=== PATIENT | male | born 1995 | race Caucasian/White ===

== ENCOUNTER 2018-09-24 19:46 | Emergency (ER) | payer BC ==
[2018-09-24] MEDS ORDERED: NS 0.9% 1000 ML** 1,000 ML IV ONE (20:04)
--- NOTE | 2018-09-24 20:12 | ED ---
Complex/Multi-Sys Presentation - HPI Summary HPI Summary: Patient is a 23 y/o M presenting to ED via EMS with complaints of feeling hot, dizzy, near syncopal and having a CHICAS while playing football outside earlier today. Patient estimates that he was outside for a few hours. Sx onset in the middle of the game. He states that he feels "a lot better" at present. Abdominal cramping is denied. On triage, pain is denied, nothing is noted to aggravate/alleviate Sx. Home medications and allergies are reviewed. - History Of Current Complaint Hx Obtained From: Patient Onset/Duration: Resolved Timing: Intermittent, Lasting: Severity Currently: None Location: Pain At: - head Character: Typical Headache Associated Signs And Symptoms: Positive: Dizziness, Headache, Other - felt hot, near syncopal. 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 Verified 09/24/18 19:50 Shock Home Medications: Home Medications NK [No Home Medications Reported] 09/24/18 [History Confirmed 09/24/18] PMH/Surg Hx/FS Hx/Imm Hx Sensory History: Denies: Hx Legally Blind, Hx Deafness Opthamlomology History: Denies: Hx Legally Blind EENT History: Denies: Hx Deafness Infectious Disease History: No Infectious Disease History: Denies: Traveled Outside the [place] in Last 30 Days - Family History Known Family History: Negative: Diabetes - Social History Alcohol Use: None Substance Use Type: Reports: None Smoking Status (MU): Never Smoked Tobacco Review of Systems Constitutional: Other - positive - felt hot Negative: Abdominal Pain Neurological: Other - positive - dizziness Positive: Headache, Syncope - near All Other Systems Reviewed And Are Negative: Yes Physical Exam - Summary Physical Exam Summary: VITAL SIGNS: Reviewed. GENERAL: Patient is a well-developed and nourished male who is lying comfortable in the stretcher. Patient is not in any acute respiratory distress. HEAD AND FACE: No signs of trauma. No ecchymosis, hematomas or skull depressions. No sinus tenderness. EYES: PERRLA, EOMI x 2, No injected conjunctiva, no nystagmus. EARS: Hearing grossly intact. Ear canals and tympanic membranes are within normal limits. MOUTH: Oropharynx within normal limits. NECK: Supple, trachea is midline, no adenopathy, no JVD, no carotid bruit, no c- spine tenderness, neck with full ROM CHEST: Symmetric, no tenderness at palpation LUNGS: Clear to auscultation bilaterally. No wheezing or crackles. CVS: Regular rate and rhythm, S1 and S2 present, no murmurs or gallops appreciated. ABDOMEN: Soft, non-tender. No signs of distention. No rebound no guarding, and no masses palpated. Bowel sounds are normal. EXTREMITIES: FROM in all major joints, no edema, no cyanosis or clubbing. NEURO: Alert and oriented x 3. No acute neurological deficits. Speech is normal and follows commands. SKIN: Dry and warm Triage Information Reviewed: Yes Vital Signs On Initial Exam: Initial Vitals Temp Pulse Resp BP Pulse Ox 98.0 F 58 15 132/81 100 09/24/18 19:48 09/24/18 19:48 09/24/18 19:48 09/24/18 19:48 09/24/18 19:48 Vital Signs Reviewed: Yes Diagnostics - Vital Signs Vital Signs Temp Pulse Resp BP Pulse Ox 09/24/18 19:48 98.0 F 58 15 132/81 100 - Laboratory Lab Statement: Any lab studies that have been ordered have been reviewed, and results considered in the medical decision making process. - EKG 1950 Cardiac Rate: Bradycardia - rate of 57 BPM EKG Rhythm: Sinus Bradycardia Summary of EKG Findings: EKG showed sinus bradycardia with rate of 57 BPM, normal axis, normal interval, no ischemic changes. Re-Evaluation - Re-Evaluation First Eval Re-Evaluation Time: 20:10 Change: Improved Comment: 2009 - Patient reported that he was anxious to leave. He is tolerating PO well and asymptomatic. Patient was advised to increased oral fluid intake. Complex Multi-Symp Course/Dx Assessment/Plan: Patient is a 23 y/o M presenting to ED via EMS with complaints of feeling hot, dizzy, near syncopal and having a CHICAS while playing football outside earlier today. Patient estimates that he was outside for a few hours. Sx onset in the middle of the game. He states that he feels "a lot better" at present. EKG showed sinus bradycardia with rate of 57 BPM, normal axis, normal interval, no ischemic changes. 2009 - Patient reported that he was anxious to leave. He is tolerating PO well and asymptomatic. Patient was advised to increased oral fluid intake. - Diagnoses Provider Diagnoses: Heat exhaustion Discharge - Sign-Out/Discharge Documenting (check all that apply): Patient Departure - DISCHARGE Patient Received Moderate/Deep Sedation with Procedure: No - Discharge Plan Condition: Stable Disposition: HOME Patient Education Materials: Heat Exhaustion (ED) Referrals: Care [facility] [Outside] - 3 Days Additional Instructions: RETURN TO ED FOR ANY NEW OR WORSENING SYMPTOMS. FOLLOW UP WITH YOUR PRIMARY CARE PHYSICIAN WITHIN THREE DAYS. INCREASE FLUID INTAKE. - Attestation Statements Document Initiated by Scribe: Yes Documenting Scribe: GRECIA HERNANDEZ Provider For Whom Scribe is Documenting (Include Credential): VELMA FAIRCHILD MD Scribe Attestation: I, GRECIA HERNANDEZ, scribed for VELMA FAIRCHILD MD on 09/24/18 at 2112. Status of Scribe Document: Ready
[2018-09-24 20:35] VITALS: BP 129/80
== END 2018-09-24 20:34 | disposition home or self-care (01) ==
LOC: ED 19:46
DX: T67.5XXA Heat exhaustion, unspecified, initial encounter (principal); X58.XXXA Exposure to other specified factors, initial encounter; Y93.61 Activity, american tackle football; Y92.9 Unspecified place or not applicable
CPT/HCPCS: 93005; 99283